=== PATIENT | male | born 1945 | race Asian ===

== ENCOUNTER 2023-07-12 01:33 | Emergency (ER) | payer MEDICARE, OTHER ==
[~2023-07-12] VITALS: Ht 149.9 cm; Wt 45.0 kg
[2023-07-12 01:35] VITALS: BP 0/0; PULSE 0; RESP 0; TEMP 100.1; O2SAT 0
== END 2023-07-12 01:46 ==
LOC: ER 01:33 → EDBD 01:33 → ER 01:46
DX: I46.9 Cardiac arrest, cause unspecified (principal); I10 Essential (primary) hypertension; Z85.038 Personal history of other malignant neoplasm of large intestine
CPT/HCPCS: 92950; 99291